=== PATIENT | male | born 1970 | race Caucasian/White ===

== ENCOUNTER 2022-08-11 07:30 | Outpatient (RCR) | payer OTHER, SELFPAY | END 2022-09-21 13:44 | disposition home or self-care (01) | PROVIDERS: PCP Family Medicine; Visit Provider Family Medicine | DX: M54.16 Radiculopathy, lumbar region (principal); Z51.89 Encounter for other specified aftercare | CPT/HCPCS: 97035; 97110; 97140; 97162 ==

== ENCOUNTER 2025-02-19 09:00 | Outpatient (RCR) | payer OTHER, SELFPAY | END 2025-06-18 14:22 | disposition home or self-care (01) | PROVIDERS: Visit Provider Family Medicine | DX: M54.42 Lumbago with sciatica, left side (principal); M54.41 Lumbago with sciatica, right side; M54.16 Radiculopathy, lumbar region; Z51.89 Encounter for other specified aftercare | CPT/HCPCS: 97110; 97140; 97161 ==

== ENCOUNTER 2025-07-25 08:06 | Day surgery (SDC) | payer OTHER, SELFPAY ==
[2025-07-25] VITALS (12 sets, daily range): BP systolic 101–120; BP diastolic 64–84; PULSE 74–86; RESP 16; TEMP 37.3; O2SAT 91–99; BMI 25.8
[2025-07-25] MEDS: LACTATED RINGERS 1000 ML 1,000 ML 100 ML IV ×2 (08:45→11:33)
[2025-07-25] MEDS: SODIUM CHLORIDE 0.9 % (FLUSH) 10 ML SYRINGE IVF (08:45)
--- NOTE | 2025-07-25 09:14 | W.PM.H&PU ---
History & Physical Update History & Physical Update H&P Reviewed and patient assessed: No changes noted
[2025-07-25] MEDS: MIDAZOLAM HCL 1 MG/ML inj IVP (09:45)
--- NOTE | 2025-07-25 09:45 | SUR.PREOP ---
TIME?OUT:?0944 PT/RN/MDA?VERIFICATION?OF?SURGICAL?SITE,?PROCEDURE,?AND?CONSENT OBTAINED?PRIOR?TO?INVASIVE?PROCEDURE.
--- NOTE | 2025-07-25 12:40 | PM.ORPRC ---
Procedure Note Date of procedure: 07/25/25 Procedure: PREOPERATIVE DIAGNOSIS: 1. Left distal biceps rupture, high-grade partial-thickness POSTOPERATIVE DIAGNOSIS: 1. Left distal biceps rupture, high-grade partial-thickness PROCEDURE: 1. Left open distal biceps repair 2. Intraoperative fluoroscopy operated and interpreted by Damaso Clark M.D. for intraoperative evaluation of radial button positioning. Fluoroscopy time was 3 seconds. SURGEON: Damaso Clark MD HIDE AND SKIN FLESHING MACHINE OPERATOR: Matias PIERRE (Of note, use of an laboratory chemical assistant was critical for this case to aid in patient positioning, tissue retraction, nerve protection, arm positioning, suture management, and closure as well as splint application.) ANESTHESIA: Supraclavicular block + MAC EBL: 2 mL TOURNIQUET: 24 minutes at 200 torr IMPLANTS: Arthrex tension slide distal Biceps Button with Peek interference screw 7 x 10mm. COMPLICATIONS: None evident INDICATIONS FOR PROCEDURE: The patient is a pleasant 54-year-old male, right hand dominant. They sustained an injury to the left distal biceps roughly within the recent past (last few months). Elected for ongoing nonoperative management. Unfortunately, he continued to have pain despite physical therapy, home exercise program, and multiple other nonoperative modalities. MRI was obtained indeed revealed a high-grade partial-thickness left distal biceps tear without retraction. Given his ongoing pain and life dysfunction, surgery was indicated. DESCRIPTION OF PROCEDURE: Following a thorough discussion of the risks, benefits and alternatives, consent was obtained and the left forearm was marked. The patient was brought to the operating room, placed supine on the operating table. Induction of general anesthesia was undertaken after a supraclavicular block was administered in the preop holding. Appropriate time out was performed to identify proper patient, site and procedure. The operative upper extremity was prepped and draped in the appropriate sterile fashion using ChloraPrep prep. The limb was exsanguinated and the tourniquet inflated to 250 Torr after 2 g IV Ancef was administered within 1 hour of incision preoperatively. A transverse incision was made in line with the antecubital fossa crease approximately 4 cm distal to the crease itself. Sharp incision through the skin and blunt dissection through the subcutaneous tissue allowed protection of crossing neurologic and vascular structures. Blunt dissection was taken deep for identification of the radial tuberosity. Additionally, the lateral antebrachial cutaneous nerve was identified and protected throughout the case. We then turned our attention to identifying the distal biceps. Indeed we were able to identified at its insertion site on the radial tuberosity. With the forearm maximally supinated, the biceps tendon was clearly visualized, and released from its insertion with a 15 blade scalpel. The tendon itself showed significant fibrous tissue consistent with attempted healing, but clearly had poor connection. It was whipstitched utilizing a #2 FiberLoop suture to get a strong hold on the tendon. The tendon diameter was measured and found to be a diameter of 7mm. We brought the tendon back down through the typical deeper planes and deep to crossing vascularity to eventually reattach to the bicipital tuberosity. The insertion site was then prepared using a Joker elevator and rongeur. A guide pin was utilized bicortical, and 8mm reamer was then used unicortically after confirming on C-arm fluoroscopic imaging to be in appropriate position at the radial tuberosity. The suture tails were then passed through the tension slide button and the button passed through the bicortical tunnel, and flipped. It was confirmed on C-arm fluoroscopic imaging to be in the proper position and flipped completely and apposed against bone. We then utilized this tension slide manner to reapproximate the tendon to the reamed hole. Once the tendon was dunked, with the elbow flexed to roughly 90 degrees, we passed one of the limbs of the suture through the tenodesis button and secured the button. Thereafter, we shuttled 1 of the suture limbs through the tendon from a previously prepared show suture at the 10 mm shahnaz. This suture passed through smoothly and then was tied as a secondary stabilization to the tension slide button with a knot pusher and 5 alternating half hitches with post switching to secure it. The tourniquet was deflated and hemostasis achieved. A thorough irrigation with normal saline was then performed followed by closure with 2-0 Vicryl and 4-0 Monocryl in subcutaneous and subcuticular layers. Dressings were applied. Posterior splint was applied. Patient awoke from anesthesia and was transferred to the Post-Anesthesia Care Unit in stable condition. PLAN: 1. Ice and elevate operative upper extremity. 2. Finger range of motion as tolerated. 3. Follow up with PA visit in 10 days. Patient may remove the splint after just 2-3 days and begin active range of motion operative elbow and forearm as tolerated. Lift nothing more than a coffee cup x 6 weeks. 4. Ibuprofen, Tylenol, and/or Oxycodone for pain as needed.
--- NOTE | 2025-07-25 12:50 | P.ANES_ITS ---
Anesthesia Charges Start Date/Time Anesthesia Start Date: 07/25/25 Anesthesia Start Time: 11:18 Stop Date/Time Anesthesia Stop Date: 07/25/25 Anesthesia Stop Time: 12:45 Coding CPT Codes CPT Codes: ANESTH BICEPS TENDON REPAIR - 26759 ([id number]) P2 - PATIENT W/MILD SYST DISEASE, QK - FIELD MECHANIC/SITE LEAD 2-4 CNCRNT ANES PROC, QX - PRINT DECORATOR SVC W/ MD MED DIRECTION
--- NOTE | 2025-07-25 12:50 | P.NB_ITS ---
Nerve Block Nerve Block Time Seen by Provider: 09:45 Date Seen: 07/25/25 Type of block requested by surgeon for post-operative analgesia: axillary Side: left Time out performed: Yes Verification of patient name: Yes Verification of date of : Yes Site marking: site marked Name of person performing procedure: Miguel Ángel Continuous monitoring Was continuous monitoring of O2 sat, B/P, alarm security or surveillance monitor, recorded every 15 minutes?: Yes Procedure Checklist: sterile prep, needles and gloves Ultrasound guided. Images saved: Yes Medications given in 5ml increments after negative aspiration: Ropivicaine %: 0.5 mL: 30 Needle gauge: 22 Patient tolerated procedure well: Yes Additional comments: Needle noted adjacent to nerve Block Charges Block Charge (with Pro Fee): Brachial Plexus Use of Ultrasound Machine for Block: Yes- US Guidance/pain block
--- NOTE | 2025-07-25 12:50 | P.ANES_ITS ---
Anesthesia Charges Start Date/Time Anesthesia Start Date: 07/25/25 Anesthesia Start Time: 11:18 Stop Date/Time Anesthesia Stop Date: 07/25/25 Anesthesia Stop Time: 12:45 Coding CPT Codes CPT Codes: ANESTH BICEPS TENDON REPAIR - 83043 ([id number]) P2 - PATIENT W/MILD SYST DISEASE, QK - TRUCKER HAND 2-4 CNCRNT ANES PROC, QX - LEAD ANDROID DEVELOPER SVC W/ MD MED DIRECTION
--- NOTE | 2025-07-25 12:50 | W.ANESCHARGE ---
Anesthesia Charges Start Date/Time Anesthesia Start Date: 07/25/25 Anesthesia Start Time: 11:18 Stop Date/Time Anesthesia Stop Date: 07/25/25 Anesthesia Stop Time: 12:45 Coding CPT Codes CPT Codes: ANESTH BICEPS TENDON REPAIR - 56567 ([id number]) P2 - PATIENT W/MILD SYST DISEASE, QK - ECLECTIC DOCTOR 2-4 CNCRNT ANES PROC, QX - NEGOTIATOR SALES SVC W/ MD MED DIRECTION
--- NOTE | 2025-07-25 12:50 | W.ANESCHARGE ---
Anesthesia Charges Start Date/Time Anesthesia Start Date: 07/25/25 Anesthesia Start Time: 11:18 Stop Date/Time Anesthesia Stop Date: 07/25/25 Anesthesia Stop Time: 12:45 Coding CPT Codes CPT Codes: ANESTH BICEPS TENDON REPAIR - 12176 ([id number]) P2 - PATIENT W/MILD SYST DISEASE, QK - REGISTERED HEALTH NURSE 2-4 CNCRNT ANES PROC, QX - POULTRY PROCESS WORKER SVC W/ MD MED DIRECTION
== END 2025-07-25 13:35 | disposition home or self-care (01) ==
LOC: OR 08:09
PROVIDERS: Visit Provider Orthopaedic Surgery Sports Medicine
PROC: (CPT 24341; principal; 2025-07-25 10:00)
DX: S46.212A Strain of muscle, fascia and tendon of other parts of biceps, left arm, initial encounter (principal); G89.18 Other acute postprocedural pain
CPT/HCPCS: 24341; 01710; 01716; 64415; 73070; 76942; C1713; J0690; J1100; J2250; J2371; J2405; J2704; J2795; J3010; J3490; J7120; L3670